=== PATIENT | male | born 1985 | race Caucasian/White ===

== ENCOUNTER 2016-12-04 10:26 | Emergency (ER) | payer SELFPAY ==
[~2016-12-04] VITALS: Ht 175.3 cm; Wt 65.8 kg
[2016-12-04 11:21] VITALS: BP 156/97
[2016-12-04] MEDS ORDERED: PIPERACILLIN-TAZOB 3.375GM 100 ML IV ONE (12:30)
[2016-12-04] MEDS ORDERED: VANCOMYCIN 1GM/250ML D5W 250 ML IV ONE (12:30)
== END 2016-12-04 14:15 | disposition left against medical advice (07) ==
LOC: ER 10:26
DX: L03.114 Cellulitis of left upper limb (principal); F17.210 Nicotine dependence, cigarettes, uncomplicated; Z53.29 Procedure and treatment not carried out because of patient's decision for other reasons